=== PATIENT | female | born 1960 | race Caucasian/White ===

== ENCOUNTER 2017-03-29 14:17 | Emergency (ER) | payer OTHER ==
[2017-03-29 14:23] VITALS: BP 121/82; BMI 38.4
--- NOTE | 2017-03-29 15:15 | DR.TOOTHHP ---
HPI - Time Seen Time seen: 15:15 - Primary Care Physician Primary Care Physician: OMERO DONALDSONP - Complaints Chief Complaint Doctors Comments: Patient presents with multiple decayed teeth with a history of taking amoxicillin for 5 days. She complaine of toothache. Chief Complaint:: PT. C/O TOOTH ABSCESS. PT. STATES HER BOTTOM, LOWER TOOTH BROKE OFF A FEW WEEKS AGO AND HAS BECOME INFECTED. PT. C/O RIGHT EARACHE WELL. PT. TOOK 5 DAYS WORTH OF AMOXICILLIN. - Source History Provided: Patient - Mode of Arrival Mode of Arrival: Ambulatory - Timing Onset of Chief Complaint: 03/28/17 PMH - PMH Past Medical History: Yes Past Medical History: Arthritis, Hypertension, Hypothyroidism Past Medical History Comment: CHRONIC BACK PAIN Past Surgical History: Yes Surgical History: Hysterectomy Past Surgical History Comment: BREAST IMPLANTS, NECK FUSION - Family History History of Family Medical Conditions: No - Social History Does patient currently use any type of tobacco product: Yes Have you used tobacco products in the last 12 months: Yes Type of Tobacco Use: Cigarettes Does any household member use tobacco: Yes Alcohol Use: Occasionally Do you use any recreational Drugs:: No Lives With: Spouse Lives Where: Home - infectious screening In the last 2 months have you had wt loss of >10#?: NO Have you had fever, night sweats or hemotysis?: No Have you traveled outside the country in the last 6 months?: No Isolation: Standard ROS - Review of Systems Eyes: No Symptoms Reported ENTM: No Symptoms Reported Respiratoy: No Symptoms Reported Cardiovascular: No Symptoms Reported Gastrointestinal/Abdominal: No Symptoms Reported Genitourinary: No Symptoms Reported Neurological: No Symptoms Reported Musculoskeletal: No Symptoms Reported Integumentary: No Symptoms Reported Hematologic/Lymphatic: No Symptoms Reported Endocrine: No Symptoms Reported Psychiatric: No Symptoms Reported All Other Systems: Reviewed and Negative PE - Vital Signs Vitals: Temperature 97.7 F Pulse Rate 81 Respiratory Rate 20 Blood Pressure 121/82 O2 Sat by Pulse Oximetry 97 - General General Appearance: Alert, In No Apparent Distress - Head Head Exam: Normal Inspection, Atraumatic - Eyes Eye exam: Normal Appearance, PERRL, EOMI - ENT ENT Exam: Normal Exam External Ear Exam: Normal External Inspection TM/Canal Exam: Bilateral Normal Nose Exam: Normal Nose Exam Mouth Exam: Normal Inspection Teeth Exam: Dental Caries. negative: Dental Tenderness # (multiple), Gingival Swelling Throat Exam: Normal Inspection - Neck Neck Exam: Normal Inspection - Chest Chest Inspection: Normal Inspection - Respiratory Respiratory Exam: Normal Lung Sounds Bilat Respiratory Exam: Bilateral Clear to Auscultation - Cardiovascular Cardiovascular Exam: Regular Rate - Abdominal Exam Abdominal Exam: Normal Inspection, Normal Bowel Sounds Abdominal Tenderness: negative: RUQ, RLQ, LUQ, LLQ, Epigastrium, Suprapubic, Diffuse, Mild, Moderate, Severe, Other - Extremities Extremities Exam: Normal Inspection, Full ROM - Back Back Exam: Normal Inspection, Full ROM - Neurologic Neurological Exam: Alert, Oriented X3, CN II-XII Intact - Psychiatric Psychiatric Exam: Normal Affect - Skin Skin Exam: Warm, Dry, Intact - Diagnosis Discharge Problem: Pain due to dental caries - Discharge Plan Condition: Stable Prescriptions: Ketorolac Tromethamine [Toradol Tab] 10 mg PO Q8H PRN #12 tab PRN Reason: Pain - Follow ups/Referrals Follow ups/Referrals: JUNIOR ORO [Primary Care Provider] - 3 days - Instructions
[2017-03-29] MEDS ORDERED: TORADOL 60 MG VIAL IM ONE (15:21)
[2017-03-29] MEDS ORDERED: TORADOL 60 MG VIAL ONE (15:28)
== END 2017-03-29 15:39 | disposition home or self-care (01) ==
LOC: ER 14:27
DX: K02.9 Dental caries, unspecified (principal)
CPT/HCPCS: 96372; 99282; J1885